=== PATIENT | female | born 2000 | race Two or more races ===

== ENCOUNTER 2025-11-03 12:57 | Emergency (ER) | payer BC ==
[~2025-11-03] VITALS: Ht 175.3 cm; Wt 62.6 kg
[2025-11-03] MEDS ORDERED: KETOROLAC TROMETHAMINE 30 MG VIAL IM ONE (17:00)
[2025-11-03] MEDS ORDERED: KETOROLAC TROMETHAMINE 30 MG VIAL ONE (18:35)
[2025-11-03] MEDS ORDERED: DICLOFENAC SODI50 MG PO (20:24)
== END 2025-11-03 22:24 | disposition home or self-care (01) ==
LOC: ER 12:58
DX: M25.561 Pain in right knee (principal)